=== PATIENT | male | born 1990 | race American Indian/Alaskan Native ===

== ENCOUNTER 2016-06-28 23:05 | Emergency (ER) | payer SELFPAY ==
[2016-06-28 23:14] VITALS: BP 140/77
[2016-06-28] MEDS ORDERED: Acetaminophen/HYDROcodone 325-10 MG Tab PO ONE (23:25)
--- NOTE | 2016-06-28 23:29 | EDM.PDOC ---
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 Right Ankle Pain Score (Numeric/FACES): 7 - Related Data Allergies Allergy/AdvReac Type Severity Reaction Status Date / Time No Known Allergies Allergy Verified 06/28/16 23:14 Home Meds: Home Meds . [No Known Home Meds] 06/28/16 [History] Past Medical History - Past Health History Medical/Surgical History: Denies Medical/Surgical History Social & Family History - Tobacco Use Smoking Status *Q: Current Every Day Smoker Years of Tobacco use: 6 Packs/Tins Daily: 0.5 Used Tobacco, but Quit: No Second Hand Smoke Exposure: Yes - Alcohol Use Days Per Week of Alcohol Use: 0 - Recreational Drug Use Recreational Drug Use: No Review of Systems - Review of Systems Review Of Systems: ROS reveals no pertinent complaints other than HPI. Trauma Exam - Physical Exam Exam: See Below Exam Limited By: No Limitations General Appearance: Reports: Alert, WD/WN, Mild Distress, Other (pain) Head: Reports: Atraumatic Ears: Reports: Hearing Grossly Normal Throat/Mouth: Reports: Normal Voice, No Airway Compromise Neck: Reports: Non-Tender, Full Range of Motion Respiratory Exam: Reports: No Respiratory Distress Cardiovascular: Reports: Regular Rate, Rhythm GI/Abdominal: Reports: Soft, Non-Tender Extremities: Pain with Movement, Tenderness, Other (swollen dorsal>, NV wnl, gait limted to pain) Neurologic: Reports: No Motor/Sensory Deficits, Alert, Normal Mood/Affect, Oriented x 3 Skin: Reports: Normal Color. Denies: Warm/Dry Course - Vital Signs Last Recorded V/S: Last Vital Signs Temp 36.3 C 06/28/16 23:09 Pulse 76 06/28/16 23:09 Resp 18 06/28/16 23:09 BP 140/77 06/28/16 23:09 Pulse Ox 99 06/28/16 23:09 - Orders/Labs/Meds Meds: Medications Discontinued Medications Generic Name Dose Route Start Last Admin Trade Name Freq PRN Reason Stop Dose Admin Hydrocodone Bitart/Acetaminophen 1 tab 06/28/16 23:25 06/28/16 23:29 Dolphin 325-10 Mg PO 06/28/16 23:26 1 tab ONETIME ONE Administration - Re-Assessments/Exams Free Text/Narrative Re-Assessment/Exam: 06/28/16 23:51 negative x-ray discussed with Pt. Departure - Departure Time of Disposition: 23:52 Disposition: Home, Self-Care 01 Condition: good Clinical Impression: Sprain of foot, right Qualifiers: Encounter type: initial encounter Qualified Code(s): S93.601A - Unspecified sprain of right foot, initial encounter - Discharge Information Instructions: Foot Sprain Forms: ED Department Discharge Additional Instructions: 1) wear TIMBO and use crutches next 48 hours 2) elevate foot as much as possible next 48 hours 3) ice intermittently for swelling 4) follow up at clinic or recheck as needed rx given: vicodin 5/325mg bid prn x 12 }
== END 2016-06-28 23:58 | disposition home or self-care (01) ==
LOC: DL.ED 23:05
DX: S93.601A Unspecified sprain of right foot, initial encounter (principal); F17.210 Nicotine dependence, cigarettes, uncomplicated; X50.1XXA Overexertion from prolonged static or awkward postures, initial encounter
CPT/HCPCS: 73620; 99283; A9270